=== PATIENT | male | born 1955 | race Caucasian/White ===

== ENCOUNTER 2025-02-09 07:21 | Inpatient (IN) | payer MEDICARE, OTHER, SELFPAY ==
[2025-02-07 12:50] VITALS: BP 162/101
--- NOTE | 2025-02-07 14:35 | ED.GENMED ---
History of Present Illness
General
Chief Complaint: Abdominal Pain
Source: patient
Exam Limitations: none
Time Seen by Provider: 02/07/25 13:39
Nursing documentation reviewed up to this point in time: agreed with
History of Present Illness
History of Present Illness:
Patient with history of right inguinal hernia, presents to ED secondary to worsening pain with swelling in his right lower abdominal wall/groin since last night with nausea sensation. Patient reports clammy sensation secondary to severe pain.
Denies trauma. Denies incontinence. Denies vomiting. Patient does report that he has been straining with bowel movements recently. Patient has been evaluated by surgery, Dr. Tavares, who had recommended outpatient elective hernia repair in the
past.
Past History
Past History
ED Past Medical History: Arrthythmia, Other (kidney stones) and Other (kidney stones)
ED Past Surgical History: None
Social History
Tobacco: Non-smoker
Alcohol: Occasional
Living: with family
Employment: Employed
Family History
Family History: Negative Diabetes
Review of Systems
Review of Systems
Allergies reviewed?: Yes
All Other Systems: ROS reviewed and negative except as documented in HPI and ROS
Constitutional: Reports no symptoms
ABD/GI: Reports abdominal pain and nausea; Denies vomiting
Musculoskeletal: Reports no symptoms
Skin: Reports no symptoms
Neurological: Reports no symptoms
Phy Exam
Physical Exam
Physical Exam:
Physical Exam
General: mild painful distress, not acutely ill. afebrile
Head: nc/at. eomi
Neck: supple. normal range of motion.
Abdomen: normal bowel sounds. moderate tenderness to palpation over right lower abdomen with swelling, unable to be reduced with gentle pressure
Neuro: alert and oriented x 3. no focal neurological deficits
Skin: no rash
Psychiatric: well kept. interactive and cooperative
Extremities: no edema. no calf tenderness.
Course
Orders/Labs/Results
Orders:
Orders
02/07/25 14:04
CT Abd/pelvis W Iv Cont Urgent
Comment:
Reason For Exam: right inguinal/RLQ swelling w pain
0.9% Sodium Chloride 500 ml [Nss] 500 ml IV BOLUS
HYDROmorphone [Dilaudid] 0.5 mg IV NOW STA
02/07/25 14:37
Basic Metabolic Panel Urgent
Complete Blood Count/No Diff Urgent
02/07/25 14:45
Ondansetron Injectable [Zofran] 4 mg IV NOW STA
02/07/25 Dinner
Clear Liquid
At Your Request: Full Participation
02/07/25 16:44
Admit Patient As Directed
Co-Sign Provider:
Level of Care: Observation services
Assign to:: Medical/Surgical
Physician / Group: Della
Diagnosis: Bilateral inguinal hernia, incarcerated
Code Status As Directed
Resuscitation Status: Full Code
HYDROmorphone [Dilaudid] 0.5 mg IV Q2HPRN PRN
HYDROmorphone [Dilaudid] 1 mg IV Q2HPRN PRN
Ketorolac [Toradol] 10 mg IV Q6HPRN PRN
Activity As Directed
Activity Level: Out of Bed-Early Mobility
Anti-embolism ([place]) Hose As Directed
Type: Thigh high
Intake/ Output As Directed
Frequency: Per unit guidelines
Vital Signs As Directed
Frequency: Per unit guidelines
PRN Pain Medication Management As Directed
May give lesser potent ordered pain med per pt: Yes
preference::
Protocol:: Medication orders for pain may be administered in a
manner that supports deferring to patient preference
when the pt is:
- Requesting an ordered lesser potent pain medication.
Least to most potent pain medications are defined
as: acetaminophen < NSAID < tramadol < opioids
(morphine, oxycodone, hydromorphone).
- Requesting a lesser dose of the same medication IF
ORDERED.
- Requesting a less intrusive route of administration
if both routes are prescribed by the provider (PO <
IV).
02/07/25 16:45
Pneumatic Compression Sleeves As Directed
Type: Knee high
DX Deep Vein Thrombosis Video Routine
02/07/25 19:00
Enoxaparin Sodium [Lovenox] 40 mg SC QPM
02/07/25 21:00
Ondansetron Injectable [Zofran] 4 mg IV Q6HPRN PRN
02/08/25 05:47
Complete Blood Count/No Diff IN AM
02/08/25 Breakfast
NPO
Allow oral meds: No
Allow clear liquids: No
Abnormal Lab Results
02/07/25
14:37
WBC 12.2 H 10^3/uL
(4.8-10.8)
MCV 94.7 H fL
(80.0-94.0)
MCH 32.6 H pg
(27.0-31.0)
Carbon Dioxide 21 L mmol/L
(22-30)
Glucose 110 H mg/dl
(70-99)
02/07/25 14:37
02/07/25 14:37
Vital Signs
Initial and Last Documented VS:
Initial Vital Signs
Temp Pulse Resp BP Pulse Ox
98.0 F 96 15 162/101 96
02/07/25 12:50 02/07/25 12:50 02/07/25 12:50 02/07/25 12:50 02/07/25 12:50
Last Documented Vital Signs
Temp Pulse Resp BP Pulse Ox
98.1 F 75 16 138/78 94
02/08/25 07:30 02/08/25 07:30 02/08/25 07:30 02/08/25 07:30 02/08/25 07:30
MDM/Problems Addressed
MDM/Problems Addressed:
Discussed with on-call surgery, Dr. Hull, who recommends obtaining CT abdomen pelvis at this time for better visualization of the affected area.
Patient will be admitted by Dr. Hull for further evaluation and treatment.
*Pulse Oximetry
SaO2: 96
Oxygen Mode of Delivery: Room air
Patient hypoxic: no
*Critical Care Note
Total Time (30-74mins, 75-104mins- exclusive of procedures): Not Applicable
ED Attending Note
-
Portions of this chart may have been created with voice recognition software.� Occasional wrong word or��sound alike� substitutions may have occurred due to the inherent limitations of voice recognition software.
Discharge Plan
Departure
Patient Disposition: Admit
Date of Disposition: 02/07/25
Time of Disposition: 16:44
Admit to: Med/Surg
Presentation/result/management discussed w/ accepting MD/DO:
Discharge Problem:
Inguinal hernia, Intractable abdominal pain
Interventions
Interventions:
*Risk Screen - Suicide Last Done: 02/08/25 00:14
*General Assessment Last Done: 02/07/25 12:50
*Neglect/Abuse Screening Last Done: 02/07/25 12:50
*ED- Fall Risk Assessment Last Done: 02/07/25 14:00
*ED COVID-19 Vaccine History Last Done: 02/08/25 00:10
*Nursing Disposition Last Done: 02/07/25 23:28
SX-Demqug-Kvddejcbcr Assessment Last Done: 02/07/25 14:00
[2025-02-07] MEDS: DILAUDID 0.5 MG IV (14:38)
[2025-02-07] MEDS: NSS 500 IV (14:38)
[2025-02-07] MEDS: ZOFRAN 4 MG IV (14:48)
[2025-02-07 14:57] VITALS: BMI 33.5
[2025-02-07 14:58] LABS: Hematocrit 45.1 % (39.0-52.0); Hemoglobin 15.5 g/dL (13.0-18.0); Mean Corp Hgb Conc. 34.4 g/dL (33.0-37.0); Mean Corpuscular Volume 94.7 fL (80.0-94.0); Platelet Count 204 10^3/uL (130-400); Red Cell Dist. Width 12.3 % (11.5-14.5)
[2025-02-07 15:13] LABS: Blood Urea Nitrogen 14 mg/dl (9-20); Calcium 9.1 mg/dl (8.4-10.2); Carbon Dioxide 21 mmol/L (22-30); Chloride 106 mmol/L (98-107); Estimated Creatinine Clearance 96 ml/min; Glucose 110 mg/dl (70-99); Sodium 136 mmol/L (135-145); eGFR > 60.00
--- NOTE | 2025-02-07 16:48 | CON.GS ---
Addendum entered and electronically signed by Fuad Hull MD 02/08/25 07:56:
LATE ENTRY from 02/07/25
I was physically present and personally performed the olivares portions of the surgical evaluation and/or procedure with the resident. I discussed the findings, reviewed the resident�s note, and confirmed the medical decision-making. I provided direct
supervision as required and agree with the assessment and plan as documented with the following additions/corrections:
69M with longstandding large bilateral inguinal hernias causing intermittent pain. Last night after a sneeze the pain increased on the right side. He denies f/c/v, endorses mild nausea, he is passing flatus. AFVSS, mild leukocytosis noted. CT shows
bilateral inguinal hernias involving bowel, there are no overt signs of immediate bowel threat or compromise. Attempts at bedside partial reduction were unsuccessful. Plan to admit for obs and pain control, trend WBC. NPO @ [place] to preserve option of
surgery if his condition declines, though the timing of this operation remains TBD.
Original Note:
Consultation
-
Date/Time Consultation Performed: 1629
Performing Provider: Rajendra Hollins MD; Fuad Hull MD
Reason for Consultation: Scrotal pain
Medical History
-
Chief Complaint: Abdominal pain
History of Present Illness:
Patient presents to the emergency department with lower abdominal/groin pain since last night. Patient had a 'deep sneeze' last night, which was followed by sensation of a 'punch' to the groin. Since the sneeze, patient has had right-sided severe
groin pain and swelling. Pain is localized to the groin lower abdomen on the right side, with no radiation elsewhere. Last bowel movement was yesterday. Patient continues to pass flatus. Patient endorses nausea, but no vomiting. Patient states
that he is still with groin hernias for over 10 years, and he was even seen by Dr. Tavares approximately 6 months ago. Hernias have been incrementally growing in size. Surgery was recommended, but patient deferred surgery at that time.
Past Medical History
Past Medical History: Arrhythmias and Other (Kidney stones)
Past Surgical History: None
Social History
Tobacco: Non-Smoker
Alcohol: Occasional
Living: With Family
Employment: Employed
Family History
Family History: Reviewed & Noncontributory
Allergies / Home Medications
Allergy/AdvReac Type Severity Reaction Status Date / Time
cefaclor (From Ceclor) Allergy Hives Verified 08/09/18 17:58
ciprofloxacin (From Cipro) Allergy racing Verified 08/09/18 17:58
reart
�Medication �Instructions �Recorded �Confirmed �Type
oxycodone-acetaminophen 5 mg-325 1 tab PO Q4HPRN PRN pain #14 tabs 05/01/14 05/03/14 Rx
mg tablet
tamsulosin 0.4 mg capsule 0.4 mg PO DAILY #7 caps 05/01/14 05/03/14 Rx
Review of Systems
-
A 10 point review of systems was completed, and was negative except as per HPI.
Physical Exam
Vital Signs
Temp Pulse Resp BP Pulse Ox
98.0 F 96 18 162/101 96
02/07/25 12:50 02/07/25 12:50 02/07/25 14:00 02/07/25 12:50 02/07/25 14:57
02/06/25 02/07/25 02/08/25
06:59 06:59 06:59
Actual Weight 109 kg
Body Mass Index (BMI) 33.5
Lab Results
02/07/25 14:37
02/07/25 14:37
WBC 12.2 10^3/uL (4.8-10.8) H 02/07/25 14:37
Hgb 15.5 g/dL (13.0-18.0) 02/07/25 14:37
Hct 45.1 % (39.0-52.0) 02/07/25 14:37
Plt Count 204 10^3/uL (130-400) 02/07/25 14:37
Physical Exam
General: Other (Mild distress due to pain)
HEENT: Normocephalic and Atraumatic
GI: Tender (TTP in the right groin; manual right hernia reduction attempted in Trendelenburg position, however unable to reduce; severe pain elicited on attempted reduction) and Other (Bilateral groin swelling C/W bilateral inguinal hernias)
Neuro: Awake and AO x 3
Psych: Calm
Assessment / Plan
-
Assessment: Patient is a 69-year-old male with no past surgical history and 10+ year history of inguinal hernias who presented to the emergency department with right-sided lower abdominal/groin pain and swelling. Physical exam and CTAP are
consistent with large bilateral inguinal hernias containing nonobstructed bowel. Failed bedside reduction of right-sided hernia and CTAP findings of mild stranding within superior aspect of right hernia sac suggest incarceration without overt signs
of strangulation. Based on the aforementioned findings, suspect left inguinal hernia and incarcerated right inguinal hernia without obstruction bilaterally.
CTAP 02/07: large bilateral inguinal hernias; no bowel obstruction or wall thickening; stranding in superior aspect of RIH sac; no free air peritoneum
Afebrile, mild leukocytosis (WBC 12.2), hypertensive
Plan:
Admit for observation and likely surgical intervention
Clear liquid diet for now, n.p.o. in the morning in anticipation of surgery
Repeat CBC tomorrow morning
Pain control: Dilaudid, ketorolac
Antiemetics: Zofran PRN
DVT PPx: enoxaparin, SCDs
[2025-02-07] MEDS: DILAUDID 1 MG IV (17:09)
[2025-02-07] MEDS: LOVENOX SC ×2 (19:15→19:18)
[2025-02-07 23:35] VITALS: BP 127/75
[2025-02-07 23:50] VITALS: BP 127/75
[2025-02-08 00:02] VITALS: BMI 33.1
[2025-02-08] MEDS: DILAUDID 1 MG IV (00:05)
--- NOTE | 2025-02-08 03:55 | PTCARENOTE ---
Pt arrived from ED to unit on stretcher at 2330. Patient ambulated to bed without assist-gait steady. Pt AAOx3, complains of right-sided abd pain-See MAR. Per pt, hernia was able to be partially reduced in ER-Scrotal edema +2, lower abd edema +1; pt
reports 'this is my normal'. Pt oriented to unit, states no further needs at this time
--- NOTE | 2025-02-08 04:00 | PTCARENOTE ---
resumed care of pt sleeping soundly. Pain at tolerable level at this time. Left AC int capped. Pt kept NPO for possible surgical procedure. Call wyatt in reach. Will continue to monitor.
[2025-02-08 06:16] LABS: Hematocrit 44.2 % (39.0-52.0); Hemoglobin 14.5 g/dL (13.0-18.0); Mean Corp Hgb Conc. 32.8 g/dL (33.0-37.0); Mean Corpuscular Volume 96.5 fL (80.0-94.0); Platelet Count 192 10^3/uL (130-400); Red Cell Dist. Width 12.7 % (11.5-14.5)
[2025-02-08 07:30] VITALS: BP 138/78
[2025-02-08] MEDS: TORADOL 10 MG IV ×2 (07:35→17:35)
--- NOTE | 2025-02-08 07:35 | PTCARENOTE ---
Patient c/o 12/14 RLQ pain. Patient refusing Dilaudid.Patient states, 'I don't want that heavy stuff.' Toradol given.
--- NOTE | 2025-02-08 09:57 | W.PN.GS2 ---
Addendum entered and electronically signed by Radny Tavares MD 02/08/25 10:30:
I was physically present and personally performed the olivares portions of the surgical evaluation and/or procedure with the resident. I discussed the findings, reviewed the resident�s note, and confirmed the medical decision-making. I provided direct
supervision as required and agree with the assessment and plan as documented with the following additions/corrections:
Patient reports continued discomfort/pain in the right inguinal region which is improved since initial onset and presentation but not yet back to baseline.
Nausea subsided, no vomiting. He has been passing flatus and had a bowel movement today.
AFVSS
NAD AAO x 3
ABD: Soft, nondistended, no abdominal tenderness on palpation.
Chronically incarcerated left inguinal hernia. Nontender. Did not attempt to reduce.
Chronically incarcerated right inguinal hernia with some tenderness but no rebound or guarding. Was able to partially reduce.
Assessment/plan: 69-year-old male presenting with acute exacerbation of right inguinal pain in the setting of chronically incarcerated bilateral large inguinal scrotal hernias. Possible partial SBO due to hernia but no signs of high-grade
obstruction, strangulation or immediate bowel compromise/threat.
In the setting of the acute pain and change in baseline we discussed indications for operative correction which patient is now in agreement to proceed with.
Robotic assisted laparoscopic repair bilateral inguinal hernia with mesh; possible open was reviewed in detail. Discussed the operative technique, potential operative findings and their management and alternative treatment options. Discussed
potential benefits and risks of the procedure such as but not limited to bleeding/ injury to adjacent vascular structures, infectious & wound related complications, testicular injury, visceral injury to bowel/bladder, utilization of permanent
prosthetic mesh, hernia recurrence risk, development of postoperative seroma, chronic postoperative pain risk assessment, and postoperative urinary retention requiring Mireles catheter placement for management. We reviewed the typical postoperative
recovery as well as recommended short term activity limitations.
Any of the patient's concerns or questions were fully addressed.
Clear liquids today for comfort
Check preop EKG for updated baseline
Resume home metoprolol XL 50 mg p.o. daily for history of hypertension/paroxysmal SVT
N.p.o. after midnight with IV fluids
Patient added onto the OR schedule for 02/09/2025 with myself
Original Note:
Today's Communication / Plan
-
Plan for OR tomorrow for bilateral inguinal hernia repairs with Dr. Tavares
N.p.o. after midnight
Clear liquid diet today
Pain control, antiemetics as needed
Assessment / Plan
-
Assessment: Patient is a 69-year-old male with no past surgical history and 10+ year history of inguinal hernias who presented to the emergency department with right-sided lower abdominal/groin pain and swelling. Physical exam and CTAP are
consistent with large bilateral inguinal hernias containing nonobstructed bowel. Failed bedside reduction of right-sided hernia and CTAP findings of mild stranding within superior aspect of right hernia sac suggest incarceration without overt signs
of strangulation. Based on the aforementioned findings, suspect left inguinal hernia and incarcerated right inguinal hernia without obstruction bilaterally.
Hospital day #2
- Continues to have right groin pain related to incarcerated RIH
- Afebrile, leukocytosis resolved
- Tolerating clear liquid diet
Plan:
OR tomorrow for bilateral inguinal hernia repairs
Clear liquid diet today
N.p.o. after midnight
Pain control: Dilaudid, ketorolac as needed
Antiemetics: Zofran as needed
DVT PPx: Enoxaparin, SCDs
Monitor clinical status
Subjective Data
-
Date of Service: February 08, 2025
Patient was seen at the bedside on hospital day #2. Nursing reports NAEO. Patient continues to have right-sided groin/lower abdominal pain, which is 7/10 in intensity and requiring pain medication. Patient does not normally require pain
medication for his chronic bilateral hernias. No BM since Wednesday (02/06), passing flatus. Nausea, but no vomiting. Denies fever, fatigue, or chills.
Objective Data
-
Vital Signs
Temp Pulse Resp BP Pulse Ox
98.1 F 75 16 138/78 94
02/08/25 07:30 02/08/25 07:30 02/08/25 07:30 02/08/25 07:30 02/08/25 07:30
Lab Results
02/08/25 05:47
02/07/25 14:37
Calcium 9.1 mg/dl (8.4-10.2) 02/07/25 14:37
Physical Exam
-
General: No apparent distress. Conversant.
Abdominal: Large bilateral inguinal hernias. Mildly tender in right groin, though no tenderness on left. No rigidity, guarding, or rebound tenderness.
Patient has a mireles catheter: No
Patient has a central line: No
--- NOTE | 2025-02-08 10:32 | CM ---
Reviewed the chart notes and spoke with the patient at the bedside. The patient is admitted under observational status. GUAJARDO letter provided and explained. The patient had no questions with regards to the letter.
The patient resides with his spouse in a one story home with one step to enter when in [place]. The patient reports no DME/VN/SNF in the past. The patient confirmed his pharmacy of choice is [facility]. [facility]. Patient anticipates having
surgery tomorrow. CM continues to be available to patient/family and is monitoring medical plan for needs at discharge.
Plan: Discharge plans will depend on the patient's progress.
[2025-02-08] MEDS: TOPROL XL 50 MG PO (11:08)
[2025-02-08 16:35] VITALS: BP 150/76
[2025-02-08] MEDS: TYLENOL 1000 MG PO (17:34)
[2025-02-08] MEDS: LOVENOX 40 MG SC (17:34)
[2025-02-08 23:00] VITALS: BP 120/74
[2025-02-09] VITALS (9 sets, daily range): BP systolic 0–146; BP diastolic 67–79
[2025-02-09] MEDS: ZOFRAN 4 MG IV ×2 (06:16→23:36)
[2025-02-09] MEDS: DILAUDID 0.5 MG IV (06:17)
[2025-02-09] MEDS: TOPROL XL 50 MG PO (08:29)
[2025-02-09] MEDS: NSS 1000 IV ×3 (09:14→22:27)
--- NOTE | 2025-02-09 10:19 | CM ---
Reviewed the chart notes. Patient for OR today for robotic assisted laparoscopic repair bilateral inguinal hernia with mesh; possible open. CM continues to be available to patient/family and is monitoring medical plan for needs at discharge.
Plan: Discharge plans will depend on the patient's progress.
--- NOTE | 2025-02-09 13:22 | W.SUR.PREOP ---
Pre-Operative Surgical Note
-
I have examined this patient prior to the performance of the scheduled procedure.
The patient's condition is unchanged from the time of the current History and
Physical and the patient is able to undergo the scheduled procedure.
[2025-02-09 21:18] LABS: Glucose - Point of Care 107 mg/dl (70-99)
--- NOTE | 2025-02-09 21:20 | W.IMMPOSTOP ---
Surgical Immed Post Op Note
-
Primary Surgeon: Randy Tavares MD
Assisting Surgeon: Fatuma Hicks PA-c
Randolph ANDRADE
Pre-op Diagnosis: Chronically incarcerated bilateral inguinal scrotal hernias with acute obstruction
Post-op Diagnosis: Chronically incarcerated bilateral inguinal scrotal hernias with acute obstruction; indirect
Procedure Performed: Robotic assisted laparoscopic RENETTA repair bilateral incarcerated, obstructing inguinal hernias with mesh; 3D max extra-large regular weight.
Modifier 22 for increased complexity of surgery due to BMI 33 and complexity of large inguinal scrotal hernias extending typical operative time by 3 to 4 hours
Anesthesia Type: GETA +0.25% Marcaine with epi
Specimen / Cultures: None
Estimated Blood Loss: 50 mL
Complications: None immediate
Operative Findings:
--Large chronically incarcerated inguinal hernias extending into the scrotum.
--Right inguinal hernia containing large amount of ileum and cecum. Contents able to be completely reduced with robotic assisted laparoscopic approach. 3D max extra-large regular weight mesh. Mesh secured to Brendan's ligament with 2 titanium
tacks. Lateral 2-0 Vicryl stitch to secure as well. Peritoneal flap closed with 2-0 Monocryl. 19 Mike drain placed into preperitoneal space and directed into inguinal canal/scrotal region.
-- Left inguinal hernia containing large segment of sigmoid colon and slider type configuration. Counterincision made in the left inguinal area for manual reduction of sigmoid colon. Robotic assisted laparoscopic preperitoneal repair with 3D max
extra-large regular weight mesh. Mesh secured to Brendan's ligament with 2 titanium tacks. Lateral 2-0 Vicryl stitch to secure mesh as well. Peritoneal flap closed with 2-0 Monocryl Stratafix. 19 Mike drain placed into preperitoneal space and
directed into the left inguinal canal/scrotal region.
-- Superficial serosal tear on sigmoid colon repaired with 2-0 Vicryl stitch in Lembert fashion
-- Maintain Montiel catheter postoperatively until return of GI function and ambulating as high risk for postoperative urinary retention
-- Anthony powder placed in left scrotal region to assist with postoperative hemostasis.
-- TXA 1 g IV administered x 2 intraoperatively
The assistance of Fatuma Hicks PA-C was required due to the complexity of the procedure. During the procedure Fatuma Hicks PA-C assisted with port placement, robotic instrumentation and suture material exchanges, and closure of the surgical incision
sites. I was present for the entirety of the operative procedure.
[2025-02-09] MEDS: NORMOSOL-R/PLASMALYTE-A 500 IV (22:07)
[2025-02-09] MEDS: LOVENOX SC (22:59)
[2025-02-09] MEDS: DILAUDID 1 MG IV (23:32)
[2025-02-10 00:50] VITALS: BP 114/65
[2025-02-10] MEDS: NSS 1000 IV ×3 (03:28→17:53)
[2025-02-10] MEDS: DILAUDID 1 MG IV ×3 (03:29→15:59)
[2025-02-10 03:41] VITALS: BP 102/66
[2025-02-10 06:46] LABS: Hematocrit 40.9 % (39.0-52.0); Hemoglobin 13.5 g/dL (13.0-18.0); Mean Corp Hgb Conc. 33.0 g/dL (33.0-37.0); Mean Corpuscular Volume 98.3 fL (80.0-94.0); Platelet Count 177 10^3/uL (130-400); Red Cell Dist. Width 12.5 % (11.5-14.5)
[2025-02-10 07:14] LABS: Blood Urea Nitrogen 15 mg/dl (9-20); Calcium 7.7 mg/dl (8.4-10.2); Carbon Dioxide 18 mmol/L (22-30); Chloride 111 mmol/L (98-107); Estimated Creatinine Clearance 78 ml/min; Glucose 102 mg/dl (70-99); Potassium 4.5 mmol/L (3.5-5.1); Sodium 138 mmol/L (135-145); eGFR > 60.00
[2025-02-10 07:30] VITALS: BP 117/63
[2025-02-10] MEDS: ASPIR LOW (ENTERIC COATED) 81 MG PO (08:21)
[2025-02-10] MEDS: TOPROL XL 50 MG PO (08:21)
--- NOTE | 2025-02-10 09:47 | W.PN.GS2 ---
Today's Communication / Plan
-
Clear liquids
OOB as tolerated
Assessment / Plan
-
69 yo male with chronically incarcerated bilateral inguinal scrotal hernias with acute obstruction now POD #1 RAL RENETTA repair bl incarcerated obstructing inguinal hernias with mesh; 3D max extra-large regular weight
Arixtra to right groin intraop and TXA x2 given in OR
H/H stable
Afebrile, VSS
Expected post op pain/discomfort
Await bowel recovery
Plan:
Continue clears
Continue mireles until good bowel recovery
Analgesics prn
OOB/ambulate
Continue IVF
c/W bilateral GWEN drains, may need to remain in place upon discharge
H/O SVT, will place on telemetry and follow on PO Toprol. change to IV if arrhythmia
Resume sq lovenox, SCDs while in bed
Subjective Data
-
Date of Service: February 10, 2025
Pt seen and examined at bedside with Dr. Nathan. Denies n/v currently but had some nausea overnight. Not yet passing flatus. Pain present but analgesics helping.
Objective Data
-
Intake and Output
02/09/25 02/10/25 02/11/25
06:59 06:59 06:59
Intake Total 1979 500 / 500
Output Total 635 / 635
Balance 1979 -135 / -135
Intake:
Oral fluids 1140 / 1140
IV fluids (Total) 840 / 840 500 / 500
Normosol 500 / 500
Output:
Drain Output (Total) 60 / 60
Left Lower Abdomen B 0 / 0
Right Lower Abdomen A 60 / 60
Urine, Mireles 575 / 575
Other:
Number of approximated MODERATE 1
amounts of urine
Vital Signs
Temp Pulse Resp BP Pulse Ox
98.7 F 79 18 113/63 94
02/10/25 07:30 02/10/25 08:21 02/10/25 07:30 02/10/25 08:21 02/10/25 07:30
Lab Results
02/10/25 05:39
02/10/25 05:39
Calcium 7.7 mg/dl (8.4-10.2) L 02/10/25 05:39
Physical Exam
-
NAD
ABD soft, expected incisional tenderness, mild distention
BL GWEN's with serosanguineous outputs
Incisions well approximated with intact glue
Scrotum large, minimal edema
Patient has a mireles catheter: Yes
Patient has a central line: No
[2025-02-10 11:20] VITALS: BP 115/71
[2025-02-10] MEDS: TYLENOL 1000 MG PO ×2 (12:47→22:21)
[2025-02-10 15:23] VITALS: BP 119/61
[2025-02-10] MEDS: ZOFRAN 4 MG IV (16:03)
[2025-02-10] MEDS: LOVENOX 40 MG SC (17:36)
[2025-02-10 23:26] VITALS: BP 118/71
[2025-02-11] MEDS: NSS 1000 IV ×3 (00:37→20:10)
[2025-02-11 03:31] VITALS: BP 130/72
[2025-02-11 06:07] LABS: Hematocrit 38.4 % (39.0-52.0); Hemoglobin 12.8 g/dL (13.0-18.0); Mean Corp Hgb Conc. 33.3 g/dL (33.0-37.0); Mean Corpuscular Volume 97.7 fL (80.0-94.0); Platelet Count 171 10^3/uL (130-400); Red Cell Dist. Width 12.9 % (11.5-14.5)
[2025-02-11 06:39] LABS: Blood Urea Nitrogen 13 mg/dl (9-20); Calcium 7.9 mg/dl (8.4-10.2); Carbon Dioxide 22 mmol/L (22-30); Chloride 113 mmol/L (98-107); Estimated Creatinine Clearance 95 ml/min; Glucose 94 mg/dl (70-99); Potassium 3.9 mmol/L (3.5-5.1); Sodium 139 mmol/L (135-145); eGFR > 60.00
[2025-02-11 07:40] VITALS: BP 135/81
[2025-02-11] MEDS: TYLENOL 1000 MG PO ×3 (08:16→21:57)
[2025-02-11] MEDS: ASPIR LOW (ENTERIC COATED) 81 MG PO (08:16)
[2025-02-11] MEDS: TOPROL XL 50 MG PO (08:16)
[2025-02-11] MEDS: ZOFRAN 4 MG IV ×2 (08:22→17:19)
[2025-02-11] MEDS: DILAUDID 0.5 MG IV ×2 (08:33→17:26)
--- NOTE | 2025-02-11 10:58 | W.PN.GS2 ---
Today's Communication / Plan
-
Clears
Pain management
Assessment / Plan
-
69 yo male with chronically incarcerated bilateral inguinal scrotal hernias with acute obstruction now POD #1 RAL RENETTA repair bl incarcerated obstructing inguinal hernias with mesh; 3D max extra-large regular weight
Arixtra to right groin intraop and TXA x2 given in OR. H/H stable with very mild acute blood loss anemia
Reactive leukocytosis, trending down
Afebrile, VSS
Expected post op pain/discomfort/scrotal swelling
Await bowel recovery
Plan:
Continue clears
Scrotal elevation/support. ice packs to groins.
Continue mireles until good bowel recovery
Analgesics prn
OOB/ambulate
Continue IVF
c/w bilateral GWEN drains, may need to remain in place upon discharge
continue on tele
Continue sq lovenox, SCDs while in bed
Subjective Data
-
Date of Service: February 11, 2025
Pt seen and examined at bedside with Dr. Philip. Bravo n/v. Tolerating clears. Passing a little flatus but not much. Increasing scrotal edema today. Pain manageable but still significant.
Objective Data
-
Intake and Output
02/10/25 02/11/25 02/12/25
06:59 06:59 06:59
Intake Total 500 / 500 3420 / 3420 480 / 480
Output Total 635 / 635 960 / 960
Balance -135 / -135 2460 / 2460 480 / 480
Intake:
Oral fluids 480 / 480 480 / 480
IV fluids (Total) 500 / 500 2940 / 2940
Normosol 500 / 500
Output:
Drain Output (Total) 60 / 60 85 / 85
Left Lower Abdomen B 0 / 0 35 / 35
Right Lower Abdomen A 60 / 60 50 / 50
Urine, Mireles 575 / 575 875 / 875
Vital Signs
Temp Pulse Resp BP Pulse Ox
98.6 F 70 16 130/72 93
02/11/25 07:40 02/11/25 08:16 02/11/25 07:40 02/11/25 08:16 02/11/25 07:40
Lab Results
02/11/25 05:40
02/11/25 05:40
Calcium 7.9 mg/dl (8.4-10.2) L 02/11/25 05:40
Physical Exam
-
NAD
ABD: soft, expected incisional tenderness, mild distention
BL groin GWEN's with darker serosanguineous outputs (low outputs)
Skin: Incisions well approximated with intact glue
: Scrotum large, moderate edema, mireles with clear yellow urine
Patient has a mireles catheter: Yes
Patient has a central line: No
[2025-02-11 15:35] VITALS: BP 135/77
[2025-02-11] MEDS: LOVENOX 40 MG SC (17:20)
[2025-02-11] MEDS: NSS IV (18:02)
[2025-02-11] MEDS: LASIX 20 MG IV (22:58)
--- NOTE | 2025-02-11 23:19 | PTCARENOTE ---
Pt c/o feeling hot and having chest tightness like not being able to take a deep breath. Temp 100.9. Discussed with SUPPLY CHAIN PLANNER. Tylenol given for fever. IS ordered and pt encouraged to use-can get up to 750ml. PCXR done. IV fluids d/c'd and lasix 20mg IV
given. Patient and family updated.
[2025-02-11 23:31] VITALS: BP 152/84
--- NOTE | 2025-02-12 00:37 | W.PN.UPDATE ---
Update Note
Progress Note Update
0 RN reporting low grade temp 100.9. Pt s/p inguinal hernia repair 02/09. Tylenol order updated to include fevers and incentive spirometer. Likely atelectasis
CXR ordered as nurse stated while doing IS(only was able to pull 750) he felt like he had hard time catching breath.
2229 CXR report .Mild increased pulmonary vascularity, cannot exclude mild acute pulmonary edematous changes.
No findings to confirm pneumothorax.
Mildly elevated right hemidiaphragm. Mild bibasilar opacity most likely representing subsegmental atelectasis
Pt is tolerating po so will dc ivf for now. Encourage Pulm toilieting with IS and mobility. With increased pulm vascularity will try lasix 20mg iv. BNP added for am. No Hx of CHF.
[2025-02-12] MEDS: ZOFRAN 4 MG IV ×3 (00:59→18:00)
[2025-02-12 03:10] VITALS: BP 144/80
[2025-02-12] MEDS: TYLENOL 1000 MG PO ×3 (03:57→22:28)
[2025-02-12 06:28] LABS: Hematocrit 37.0 % (39.0-52.0); Hemoglobin 12.4 g/dL (13.0-18.0); Mean Corp Hgb Conc. 33.5 g/dL (33.0-37.0); Mean Corpuscular Volume 97.4 fL (80.0-94.0); Platelet Count 178 10^3/uL (130-400); Red Cell Dist. Width 12.8 % (11.5-14.5)
[2025-02-12 06:51] LABS: Blood Urea Nitrogen 11 mg/dl (9-20); Calcium 8.3 mg/dl (8.4-10.2); Carbon Dioxide 21 mmol/L (22-30); Chloride 111 mmol/L (98-107); Estimated Creatinine Clearance 107 ml/min; Glucose 92 mg/dl (70-99); Potassium 3.6 mmol/L (3.5-5.1); Sodium 139 mmol/L (135-145); eGFR > 60.00
[2025-02-12 07:40] VITALS: BP 150/82
[2025-02-12 08:02] VITALS: BMI 33.1
[2025-02-12] MEDS: TOPROL XL 50 MG PO (08:18)
[2025-02-12] MEDS: ASPIR LOW (ENTERIC COATED) 81 MG PO (08:18)
[2025-02-12] MEDS: LASIX 20 MG IV (09:03)
[2025-02-12] MEDS: PROTONIX 40 MG PO (09:03)
--- NOTE | 2025-02-12 10:16 | W.PN.GS2 ---
Addendum entered and electronically signed by SHANNAN Issa 02/12/25 13:26:
mild pulmonary edema: noncardiogenic. normal BNP
Addendum entered and electronically signed by Randy Tavares MD 02/12/25 11:59:
Patient seen and examined independently of surgical GUN FERTILIZER. Agree with documented progress note with additions noted here.
Reports mild intermittent nausea but no vomiting.
Postoperative pain a bit improved but still present. Adequately controlled.
States he is passing flatus regularly. No bowel movement.
Tolerating some clears, not much appetite.
AF VSS;low-grade temps
Postop leukocytosis -likely inflammatory/reactive due to extensiveness of soft tissue dissection
NAD AAO x 3, resting comfortably in hospital bed
ABD: Softly distended, not tense. Mild tenderness palpation at incision sites, more tenderness in bilateral groin region
JPs with serosanguineous fluid
Mireles with clear yellow urine
Significant scrotal edema, mild ecchymosis, penile retraction due to degree of edema
Assessment/plan: POD #3 status post RAL repair bilateral chronically incarcerated and obstructing inguinoscrotal hernias
Increase mobilization/up out of bed to chair
Follow temp curve and WBC
Maintain clear liquid diet until nausea subsides and more robust GI function
Chest x-ray with mild pulmonary edema -Lasix 20 mg IV today; hold on further IV fluid for now
Repeat CBC and BMP tomorrow a.m.
Original Note:
Today's Communication / Plan
-
OOB
Continue clears and mireles
Assessment / Plan
-
69 yo male with chronically incarcerated bilateral inguinal scrotal hernias with acute obstruction now POD #3 RAL RENETTA repair bl incarcerated obstructing inguinal hernias with mesh; 3D max extra-large regular weight
Arixtra to right groin intraop and TXA x2 given in OR. H/H stable with very mild acute blood loss anemia
Reactive leukocytosis, trending down
Low grade fever of 100.9, VSS
Still with some leukocytosis
CXR overnight with pulm edema no PNA, s/p lasix x1 dose
Expected post op pain/discomfort/scrotal swelling
Await bowel recovery
Plan:
Continue clears
Scrotal elevation/support. ice packs to groins.
Continue mireles until good bowel recovery
Analgesics prn
OOB/ambulate
IVF d/cd, will give additional dose of lasix x20mg
c/w bilateral GWEN drains, may need to remain in place upon discharge
continue on tele
Continue sq lovenox, SCDs while in bed
Subjective Data
-
Date of Service: February 12, 2025
Pt seen and examined at bedside with Dr Nathan. Passing flatus. Complains of reflux symptoms. Intermittent mild nausea relieved by zofran. Some GARNER. Low grade fever overnight. Pain managed well and improving.
Objective Data
-
Intake and Output
02/11/25 02/12/25 02/13/25
06:59 06:59 06:59
Intake Total 3420 / 3420 1920 / 1920
Output Total 960 / 960 2300 / 2300
Balance 2460 / 2460 -380 / -380
Intake:
Oral fluids 480 / 480 480 / 480
IV fluids (Total) 2940 / 2940 1440 / 1440
Output:
Drain Output (Total) 85 / 85 50 / 50
Left Lower Abdomen B 35 / 35 20 / 20
Right Lower Abdomen A 50 / 50 30 / 30
Urine, Mireles 875 / 875 2250 / 2250
Vital Signs
Temp Pulse Resp BP Pulse Ox
98.1 F 78 18 150/82 98
02/12/25 07:40 02/12/25 09:03 02/12/25 07:40 02/12/25 09:03 02/12/25 07:40
Lab Results
02/12/25 05:36
02/12/25 05:36
Calcium 8.3 mg/dl (8.4-10.2) L 02/12/25 05:36
Physical Exam
-
NAD
ABD: soft, expected incisional tenderness, mild distention
BL groin GWEN's with low serosanguineous outputs
Skin: Incisions well approximated with intact glue
: Scrotum large, moderate edema, mireles with clear yellow urine
Patient has a mireles catheter: Yes
Patient has a central line: No
[2025-02-12] MEDS: TUMS CHEWABLE TABLET 400 MG PO (10:57)
--- NOTE | 2025-02-12 11:02 | CM ---
Reviewed the chart notes. Patient continues with bilat GWEN drains to groin. Per note, may be discharged with. Patient continues on clear liquid diet. CM continues to be available to patient/family and is monitoring medical plan for needs at
discharge.
Plan: Discharge plans will depend on the patient's progress.
[2025-02-12 11:35] VITALS: BP 138/86
--- NOTE | 2025-02-12 12:57 | PN.CDI ---
CDI
- -
CDI:
Physician Documentation Request
Admit Date: 02/09/25 07:21
Dear General Surgery,
Please review the following and provide your response in the progress notes.
Clinical Indicators:
- Patient admit with bilateral inguinal scrotal hernias with acute obstruction
- 02/11 CXR 'Mild increased pulmonary vascularity, cannot exclude mild acute pulmonary edematous changes'
- 02/12 Update note 'no Hx of CHF'
- 02/11-02/12 20mg IV Lasix given
- IVF on hold
Laboratory Tests
02/12/25
05:36
[id number] Pept 1060
Please provide a diagnosis for the above lab values that were monitored and treatment rendered:
Acute CHF (please provide type)
Acute pulmonary edema
Other (please specify)
Use of terms such as suspected, likely, concern for, or probable (associated with a specific diagnosis that is being evaluated, monitored, or treated as if it exists) are acceptable and can be coded in the inpatient setting, when documented at the
time of discharge.
Thank you,
Anahi Jordan RN
CDI Specialist
Please use your independent medical judgment in providing your response.
--- NOTE | 2025-02-12 13:04 | PN.CDI ---
CDI
- -
CDI:
Physician Documentation Request
Admit Date: 02/09/25 07:21
Dear General Surgery,
Please review the following and provide your response in the progress notes.
Clinical Indicators:
- Patient admit with bilateral inguinal scrotal hernias with acute obstruction
- 02/11 CXR 'Mild increased pulmonary vascularity, cannot exclude mild acute pulmonary edematous changes'
- 02/12 Update note 'no Hx of CHF'
- 02/11-02/12 20mg IV Lasix given
- IVF on hold
Laboratory Tests
02/12/25
05:36
[id number] Pept 1060
Please provide a diagnosis for the above lab values that were monitored and treatment rendered:
Acute CHF (please provide type)
Acute non-cardiogenic pulmonary edema
Other (please specify)
Use of terms such as suspected, likely, concern for, or probable (associated with a specific diagnosis that is being evaluated, monitored, or treated as if it exists) are acceptable and can be coded in the inpatient setting, when documented at the
time of discharge.
Thank you,
Anahi Jordan RN
CDI Specialist
Please use your independent medical judgment in providing your response.
[2025-02-12 15:20] VITALS: BP 131/76
[2025-02-12] MEDS: LOVENOX 40 MG SC (17:48)
[2025-02-12 19:33] VITALS: BP 146/75
[2025-02-12] MEDS: DILAUDID 0.5 MG IV (22:29)
[2025-02-12 22:54] VITALS: BP 142/71
[2025-02-13 03:09] VITALS: BP 127/75
--- NOTE | 2025-02-13 07:05 | W.PN.GS2 ---
Today's Communication / Plan
-
`
Assessment / Plan
-
Assessment: 69 yo male with chronically incarcerated bilateral inguinal scrotal hernias with acute obstruction now POD #4 RAL RENETTA repair b/l incarcerated obstructing inguinal hernias with mesh; 3D max extra-large regular weight
Non cardiogenic pulmonary edema noted on overnight CXR 02/12 - responded well to IV lasix x 2
H/H stable with very mild acute blood loss anemia
Reactive leukocytosis stable - repeat tomorrow AM
Low grade fevers subsided over last 24hs
Expected post op pain/discomfort/scrotal swelling
Await bowel recovery
Plan:multimodal pain control options; if BMP stable this AM will add toradol as well
Scrotal elevation/support. ice packs to groins PRN
Continue mireles until scrotal edema and ambulation improve as well as bowel recovery; probable removal tomorrow AM 02/14
emcouraged OOBTC/ambulation
clear liquid diet; no need for maintenance IVFs
c/w bilateral GWEN drains, monitoring outputs; possible removal prior to dc/ home
continue on tele
Continue sq lovenox, SCDs while in bed
Subjective Data
-
Date of Service: February 13, 2025
pt seen and examined
states he is feeling better this AM than priors
improved pain control, felt like he 'broke his fever' overnight
passing flatus
appetite starting to return and no nausea but still feels abd bloating/distention
pain predominantly in the left inguinal region
Objective Data
-
Intake and Output
02/12/25 02/13/25 02/14/25
06:59 06:59 06:59
Intake Total 1919 / 1919 2360 / 2360
Output Total 2300 / 2300 2014
Balance -380 / -380 345 / 345
Intake:
Oral fluids 480 / 480 2360 / 2360
IV fluids (Total) 1440 / 1440 0 / 0
IV piggybacks 0 / 0
Output:
Drain Output (Total) 50 / 50 40 / 40
Left Lower Abdomen B 20 / 20 20 / 20
Right Lower Abdomen A 30 / 30 20 /
Urine, Mireles 2250 / 2250 1974
Vital Signs
Temp Pulse Resp BP Pulse Ox
98.3 F 67 20 127/75 95
02/13/25 03:09 02/13/25 03:09 02/13/25 03:09 02/13/25 03:09 02/13/25 03:09
Lab Results
02/12/25 05:36
02/12/25 05:36
Calcium 8.3 mg/dl (8.4-10.2) L 02/12/25 05:36
Physical Exam
-
NAD AAOx3
ABD: softly distended and tympanitic
TTP predominantly in inguinal areas L>R
incisions with glue dressings
GWEN with light SSF
scrotal edema improving/stable
Patient has a mireles catheter: Yes
[2025-02-13 07:40] VITALS: BP 136/77
[2025-02-13 08:06] LABS: Blood Urea Nitrogen 14 mg/dl (9-20); Calcium 8.3 mg/dl (8.4-10.2); Carbon Dioxide 26 mmol/L (22-30); Chloride 108 mmol/L (98-107); Estimated Creatinine Clearance 107 ml/min; Glucose 89 mg/dl (70-99); Potassium 3.6 mmol/L (3.5-5.1); Sodium 139 mmol/L (135-145); eGFR > 60.00
[2025-02-13] MEDS: PROTONIX 40 MG PO (08:34)
[2025-02-13] MEDS: TYLENOL 1000 MG PO ×2 (08:34→19:53)
[2025-02-13] MEDS: ASPIR LOW (ENTERIC COATED) 81 MG PO (08:34)
[2025-02-13] MEDS: TOPROL XL 50 MG PO (08:34)
[2025-02-13 11:10] VITALS: BP 131/65
[2025-02-13] MEDS: ZOFRAN 4 MG IV (11:34)
[2025-02-13] MEDS: DILAUDID 0.5 MG IV (11:35)
[2025-02-13] MEDS: TORADOL 10 MG IV ×2 (13:55→19:52)
--- NOTE | 2025-02-13 14:41 | CM ---
Cl liq diet, mireles which may be removed 02/14, drains which possibly will be d/cd prior to discharge, encourage ambulation and OOB, await bowel recovery. Discharge POC: If drains remain after discharge will need HH RN.
[2025-02-13 15:46] VITALS: BP 133/63
[2025-02-13] MEDS: LOVENOX 40 MG SC (17:06)
[2025-02-13 19:00] VITALS: BP 121/81
[2025-02-13 23:00] VITALS: BP 120/68
[2025-02-14] MEDS: TORADOL IV (01:10)
[2025-02-14] MEDS: ZOFRAN 4 MG IV (05:57)
[2025-02-14] MEDS: TYLENOL 1000 MG PO (05:57)
[2025-02-14 06:49] LABS: Blood Urea Nitrogen 18 mg/dl (9-20); Calcium 8.4 mg/dl (8.4-10.2); Carbon Dioxide 25 mmol/L (22-30); Chloride 107 mmol/L (98-107); Estimated Creatinine Clearance 107 ml/min; Glucose 79 mg/dl (70-99); Potassium 3.6 mmol/L (3.5-5.1); Sodium 138 mmol/L (135-145); eGFR > 60.00
[2025-02-14 07:14] LABS: Hematocrit 34.7 % (39.0-52.0); Hemoglobin 11.7 g/dL (13.0-18.0); Mean Corp Hgb Conc. 33.7 g/dL (33.0-37.0); Mean Corpuscular Volume 96.4 fL (80.0-94.0); Platelet Count 207 10^3/uL (130-400); Red Cell Dist. Width 12.6 % (11.5-14.5)
[2025-02-14 07:35] VITALS: BP 121/70
--- NOTE | 2025-02-14 07:50 | W.PN.GS2 ---
Today's Communication / Plan
-
`
Assessment / Plan
-
Assessment: 69 yo male with chronically incarcerated bilateral inguinal scrotal hernias with acute obstruction now POD #4 RAL RENETTA repair b/l incarcerated obstructing inguinal hernias with mesh; 3D max extra-large regular weight
Non cardiogenic pulmonary edema noted on overnight CXR 02/12 - responded well to IV lasix x 2
H/H stable with very mild acute blood loss anemia
Reactive leukocytosis -resolved on AM labs 02/14
Low grade fevers stable
Expected post op pain/discomfort/scrotal swelling
Await bowel recovery
Plan:
dulcolax suppository x1 this AM to assist with return of bowel function
multimodal pain control options
Scrotal elevation/support. ice packs to groins PRN
Continue mireles until scrotal edema and ambulation improve as well as bowel recovery
encourage OOBTC/ambulation
clear liquid diet; no need for maintenance IVFs
c/w bilateral GWEN drains, monitoring outputs; possible removal prior to dc/ home
Continue sq lovenox, SCDs while in bed
daughter on phone to review during pt evaluation
Subjective Data
-
Date of Service: February 14, 2025
pt seen and examined
had a 'great' day yesterday but poor evening
sweats/lower abdominal pressure
passing flatus regularly, no BM yet
Objective Data
-
Intake and Output
02/13/25 02/14/25 02/15/25
06:59 06:59 06:59
Intake Total 2360 / 2360 2580 / 2580
Output Total 2014 1095 / 1095
Balance 345 / 345 1485 / 1485
Intake:
Oral fluids 2360 / 2360 2580 / 2580
IV fluids (Total) 0 / 0
IV piggybacks 0 / 0
Output:
Drain Output (Total) 40 40 70 / 70
Left Lower Abdomen B
Right Lower Abdomen A
Urine, Mireles 1974 750 / 750
Urine, Voided 275 / 275
Vital Signs
Temp Pulse Resp BP Pulse Ox
98.8 F 74 16 120/68 97
02/13/25 23:00 02/13/25 23:00 02/13/25 23:00 02/13/25 23:00 02/13/25 23:00
Lab Results
02/14/25 05:47
02/14/25 05:47
Calcium 8.4 mg/dl (8.4-10.2) 02/14/25 05:47
Physical Exam
-
NAD AAOx3
ABD: softly distended, TTP lower abd/inguinal areas
JPs with SSF
mireles with yellow urine
scrotal swelling stable
Patient has a mireles catheter: Yes
[2025-02-14] MEDS: TORADOL 10 MG IV ×3 (08:50→20:43)
[2025-02-14] MEDS: PROTONIX 40 MG PO (08:50)
[2025-02-14] MEDS: ASPIR LOW (ENTERIC COATED) 81 MG PO (08:50)
[2025-02-14] MEDS: TOPROL XL 50 MG PO (08:50)
--- NOTE | 2025-02-14 10:49 | CM ---
Reviewed the chart notes. Continues with clear liquid diet. Continues with two abdominal drains. CM continues to be available to patient/family and is monitoring medical plan for needs at discharge.
Plan: Discharge plans will depend on the patient's progress. If drains remain at discharge, VN will be needed.
[2025-02-14] MEDS: DULCOLAX 10 MG RECTAL (11:29)
[2025-02-14 15:35] VITALS: BP 138/71
[2025-02-14] MEDS: DILAUDID 0.5 MG IV (16:47)
[2025-02-14] MEDS: LOVENOX 40 MG SC (16:54)
[2025-02-14] MEDS: MIRALAX 17 GRAMS PO (20:42)
[2025-02-14 23:15] VITALS: BP 129/74
[2025-02-15] MEDS: TORADOL 10 MG IV ×4 (02:36→21:04)
[2025-02-15 07:40] VITALS: BP 133/73
[2025-02-15 07:58] LABS: Hematocrit 34.5 % (39.0-52.0); Hemoglobin 11.7 g/dL (13.0-18.0); Mean Corp Hgb Conc. 33.9 g/dL (33.0-37.0); Mean Corpuscular Volume 95.6 fL (80.0-94.0); Platelet Count 213 10^3/uL (130-400); Red Cell Dist. Width 12.6 % (11.5-14.5)
[2025-02-15 08:24] LABS: Chloride 107 mmol/L (98-107)
[2025-02-15 08:26] LABS: Blood Urea Nitrogen 15 mg/dl (9-20); Calcium 8.4 mg/dl (8.4-10.2); Carbon Dioxide 22 mmol/L (22-30); Estimated Creatinine Clearance 107 ml/min; Glucose 80 mg/dl (70-99); Potassium 3.6 mmol/L (3.5-5.1); Sodium 137 mmol/L (135-145); eGFR > 60.00
[2025-02-15] MEDS: TOPROL XL 50 MG PO (08:38)
[2025-02-15] MEDS: PROTONIX 40 MG PO (08:38)
[2025-02-15] MEDS: ASPIR LOW (ENTERIC COATED) 81 MG PO (08:38)
[2025-02-15] MEDS: DILAUDID 0.5 MG IV (10:31)
--- NOTE | 2025-02-15 10:35 | W.PN.GS2 ---
Today's Communication / Plan
-
`
Assessment / Plan
-
Assessment: 69 yo male with chronically incarcerated bilateral inguinal scrotal hernias with acute obstruction now POD #4 RAL RENETTA repair b/l incarcerated obstructing inguinal hernias with mesh; 3D max extra-large regular weight
Non cardiogenic pulmonary edema noted on overnight CXR 02/12 - responded well to IV lasix x 2
H/H stable with very mild acute blood loss anemia
Reactive leukocytosis -resolved on AM labs 02/14
Expected post op pain/discomfort/scrotal swelling
Abdominal x-ray obtained yesterday evening and reviewed. Nonobstructive bowel gas pattern. No significant signs suggestive of ileus.
Plan:
Soapsuds enema 500 mL x 1 to assist with postoperative constipation persistent despite Dulcolax and MiraLAX
multimodal pain control options
Scrotal elevation/support. ice packs to groins PRN
Continue mireles until scrotal edema and ambulation improve as well as bowel recovery
encourage OOBTC/ambulation
start full liquid diet; no need for maintenance IVFs
c/w bilateral GWEN drains, monitoring outputs; possible removal prior to dc/ home
Continue sq lovenox, SCDs while in bed
Subjective Data
-
Date of Service: February 15, 2025
Patient seen and examined.
Passing flatus but still no bowel movement despite Dulcolax suppository and MiraLAX p.o. Continued pressure with some urgency for BM.
No nausea, no vomiting, tolerating clear liquids
Objective Data
-
Intake and Output
02/14/25 02/15/25 02/16/25
06:59 06:59 06:59
Intake Total 2580 / 2580 800 / 800
Output Total 1095 / 1095 320 / 320
Balance 1485 / 1485 480 / 480
Intake:
Oral fluids 2580 / 2580 800 / 800
Output:
Drain Output (Total) 70 / 70 20 / 20
Left Lower Abdomen B 30 / 30 10 / 10
Right Lower Abdomen A 40 / 40 10 / 10
Urine, Mireles 750 / 750 300 / 300
Urine, Voided 275 / 275
Vital Signs
Temp Pulse Resp BP Pulse Ox
98.7 F 80 18 133/73 97
02/15/25 07:40 02/15/25 07:40 02/15/25 07:40 02/15/25 07:40 02/15/25 07:40
Lab Results
02/15/25 07:32
02/15/25 07:32
Calcium 8.4 mg/dl (8.4-10.2) 02/15/25 07:32
Physical Exam
-
NAD AAO x 3
ABD: Softly protuberant/distended. Mild tenderness on palpation generalized but greatest in the suprapubic and inguinal region
GWEN drains with serosanguineous fluid not much quantity
Scrotal edema stable. No visible worsening ecchymosis.
--- NOTE | 2025-02-15 12:07 | CM ---
Reviewed the chart notes. Diet upgraded to full liquid. Continues with two abdominal drains. Per notes, possible removal at d/c depending on output. CM continues to be available to patient/family and is monitoring medical plan for needs at
discharge.
Plan: Discharge plans will depend on the patient's progress. If drains remain at discharge, VN will be needed.
[2025-02-15 15:51] VITALS: BP 141/73
[2025-02-15] MEDS: DILAUDID 1 MG IV (18:08)
[2025-02-15] MEDS: LOVENOX 40 MG SC (18:08)
[2025-02-15] MEDS: TYLENOL 1000 MG PO (21:05)
[2025-02-15 23:00] VITALS: BP 138/75
[2025-02-16] MEDS: TORADOL 10 MG IV ×2 (01:57→09:17)
[2025-02-16 07:35] VITALS: BP 145/83
[2025-02-16] MEDS: TYLENOL 1000 MG PO (09:16)
[2025-02-16] MEDS: ASPIR LOW (ENTERIC COATED) 81 MG PO (09:16)
[2025-02-16] MEDS: TOPROL XL 50 MG PO (09:17)
[2025-02-16] MEDS: PROTONIX 40 MG PO (09:17)
--- NOTE | 2025-02-16 11:22 | CM ---
Reviewed the chart notes and spoke with the patient at the bedside. IMM reviewed. Patient hoping for discharge without drains. Discussed if drains removed at discharge then VN would not be needed, but if remain VN would be needed. CM continues
to be available to patient/family and is monitoring medical plan for needs at discharge.
Plan: Discharge plans will depend on the patient's progress with drains. Spouse will provide transportation home.
--- NOTE | 2025-02-16 13:03 | W.PN.GS2 ---
Addendum entered and electronically signed by Randy Tavares MD 02/16/25 14:25:
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 Much improvement after enema yesterday with good bowel movements
Voiding volitionally
Tolerating p.o. intake, ambulating
AFVSS
NAD AAO x 3
ABD: Soft, protuberant but not distended. Mild tenderness palpation
JPs with light serosanguineous fluid -removed
Scrotal edema stable.
A/P: Stable for DC home, drains removed, DC instructions reviewed
Original Note:
Today's Communication / Plan
-
dispo planning
Assessment / Plan
-
Assessment: 69 yo male with chronically incarcerated bilateral inguinal scrotal hernias with acute obstruction
POD #7 RAL RENETTA repair b/l incarcerated obstructing inguinal hernias with mesh; 3D max extra-large regular weight
Responded well to enema, passing stools/flatus
Expected post op pain/discomfort/scrotal swelling
Voiding
Plan:
Advance diet
multimodal pain control options
Scrotal elevation/support. ice packs to groins PRN
encourage OOBTC/ambulation
Advance to regular diet
GWEN drains d/c'd at bedside
Continue sq lovenox, SCDs while in bed
Home later today
Subjective Data
-
Date of Service: February 16, 2025
Pt seen and evaluated at bedside with Dr. Tavares. Denies n/v. Passing stools s/p enema, mostly loose. Pain improving day by day. Eager to go home.
Objective Data
-
Intake and Output
02/15/25 02/16/25 02/17/25
06:59 06:59 06:59
Intake Total 800 / 800 960 / 960
Output Total 320 / 320 565 / 565
Balance 480 / 480 395 / 395
Intake:
Oral fluids 800 / 800 960 / 960
Output:
Drain Output (Total) 40 40
Left Lower Abdomen B
Right Lower Abdomen A
Urine, Montiel 300 / 300
Urine, Voided 525 / 525
Other:
Number of approximated MODERATE 1
amounts of urine
Vital Signs
Temp Pulse Resp BP Pulse Ox
98.7 F 78 16 145/83 97
02/16/25 07:35 02/16/25 07:35 02/16/25 07:35 02/16/25 07:35 02/16/25 07:35
Lab Results
02/15/25 07:32
02/15/25 07:32
Calcium 8.4 mg/dl (8.4-10.2) 02/15/25 07:32
Physical Exam
-
NAD AAO x 3
ABD: Softly protuberant, ND. Mild tenderness on palpation generalized but greatest in the suprapubic and inguinal region
GWEN drains with serosanguineous fluid not much quantity
Scrotal edema stable. No visible worsening ecchymosis.
--- NOTE | 2025-02-16 13:12 | W.DS.TRANS ---
Addendum entered and electronically signed by SHANNAN Issa 02/16/25 15:39:
dictated #[id number]
Original Note:
DC Summary - Senior Research Associate
-
Discharge Instructions:
Discharge Diagnosis/Procedures Chronically incarcerated bilateral inguinal
scrotal hernias with acute obstruction; indirect
. Robotic assisted laparoscopic RENETTA repair
bilateral incarcerated, obstructing inguinal
hernias with mesh; 3D max extra-large regular
weight.
Diet As tolerated,Regular
Activity No strenuous activity
Additional Activity Do not lift over 15lbs for the next 6 weeks
Driving Restrictions Wait until off narcotics/comfortable twisting
Bathing Restrictions OK to Shower
Wound Care Ok to wash incisions gently with soap and water.
Avoid scrubbing or picking off glue.
Keep sites were drains were located covered with
a clean gauze dressing or bandage for the next
2-3 days until drainage no longer noted. Ok to
remove dressings for showers.
Wear snug underwear to support your scrotum and
keep elevated when sitting to help decrease
swelling.
Ice packs to bilateral groin/scrotum to help
with swelling. Apply no longer than 20minutes
and keep a cloth between skin and ice to protect
your skin/incisions.
Instructions:
Stand-Alone Forms:
Changes to Home Medications: No
Discharge Medications:
DC Medications w/original date entered in [facility]
acetaminophen 325 mg tablet (Tylenol) 650 mg PO DAILYPRN PRN mild pain 02/07/25
aspirin 81 mg tablet,delayed release 81 mg PO DAILY Blood Clot Prevention/Tx 02/07/25
ibuprofen 200 mg tablet (Advil) 200 mg PO DAILYPRN PRN mild pain 02/07/25
metoprolol succinate 50 mg tablet,extended release 24 hr (Toprol XL) 50 mg PO DAILY Arrhythmia 02/07/25
simethicone 80 mg chewable tablet 80 mg PO DAILYPRN PRN gas pains 02/07/25
oxycodone 5 mg tablet 5 mg PO Q4HPRN PRN breakthrough/severe pain #7 tabs 02/16/25
Home Medication Changes
Pending Results: No
[2025-02-16 16:00] VITALS: BP 152/79
== END 2025-02-16 17:10 | disposition home or self-care (01) | DRG 350 ==
LOC: 2 SOUTH 07:21
PROVIDERS: Nurse Practitioner Family; ADMITTING PHYSICIAN Surgery; ATTENDING PHYSICIAN Surgery; EMERGENCY PHYSICIAN Emergency Medicine
PROC: 8E0W4CZ Robotic Assisted Procedure of Trunk Region, Percutaneous Endoscopic Approach (ICD-10-PCS; 2025-02-09)
PROC: 0YUA4JZ Supplement Bilateral Inguinal Region with Synthetic Substitute, Percutaneous Endoscopic Approach (ICD-10-PCS; 2025-02-09)
DX: K40.01 Bilateral inguinal hernia, with obstruction, without gangrene, recurrent (principal); J81.0 Acute pulmonary edema; D62 Acute posthemorrhagic anemia; J98.11 Atelectasis; N50.82 Scrotal pain; D72.829 Elevated white blood cell count, unspecified; N50.89 Other specified disorders of the male genital organs; K59.09 Other constipation; Z87.442 Personal history of urinary calculi; Z88.1 Allergy status to other antibiotic agents
CPT/HCPCS: 71045; 74019; 74177; 80048; 82962; 83880; 85027; 93005; 96361; 96374; 96375; 99285; C1781; Q9967